=== PATIENT | male | born 1970 | race Two or more races ===

== ENCOUNTER 2021-04-21 05:31 | Emergency (ER) | payer OTHER ==
[~2021-04-21] VITALS: Ht 170.2 cm; Wt 86.2 kg
[2021-04-21] MEDS ORDERED: COREG CR10 MG (05:49)
== END 2021-04-21 11:28 | disposition home or self-care (01) ==
LOC: ER 05:31
DX: B34.9 Viral infection, unspecified (principal); Z03.818 Encounter for observation for suspected exposure to other biological agents ruled out

== ENCOUNTER 2021-11-24 04:38 | Emergency (ER) | payer OTHER ==
[~2021-11-24] VITALS: Ht 167.6 cm; Wt 86.2 kg
[~2021-11-24 04:38] MED LIST: COREG CR10 MG
[2021-11-24] MEDS ORDERED: KETO10TA2 PO (07:10)
== END 2021-11-24 07:21 | disposition home or self-care (01) ==
LOC: ER 04:38
DX: M79.674 Pain in right toe(s) (principal)

== ENCOUNTER 2023-04-27 14:09 | Emergency (ER) | payer OTHER ==
[~2023-04-27] VITALS: Ht 177.8 cm; Wt 86.2 kg
[~2023-04-27 14:09] MED LIST changes: +KETO10TA2 PO
== END 2023-04-27 15:52 | disposition home or self-care (01) ==
LOC: ER 14:09
DX: K14.0 Glossitis (principal)